=== PATIENT | female | born 1945 | race Caucasian/White ===

== ENCOUNTER 2018-02-01 05:06 | Day surgery (SDC) | payer MEDICARE ==
[~2018-02-01] VITALS: Ht 170.2 cm; Wt 101.2 kg
[~2018-02-01 05:06] MED LIST: ALB18R INH; ASCO-504 PO; CHOL100052 PO; DILT60TA33 PO; FERR-53 PO; FLUT1DIS28 IH; METF-420 PO; NIAC250C17 PO; NIAC500T85 PO; OMEP-125 PO; POTA-35 PO; SULF500T48 PO
[2018-02-01] MEDS ORDERED: NEOMYCIN/POLYMYX/BACITR 30 GM TP ONE (06:42)
[2018-02-01] MEDS ORDERED: ROPIVACAINE 0.2% 20 ML VIAL ONE (06:42)
[2018-02-01] MEDS ORDERED: FAMOTIDINE 20 MG TAB PO ONE (11:00)
[2018-02-01] MEDS ORDERED: ONDANSETRON 4 MG/2 ML VIAL ONE (11:02)
[2018-02-01] MEDS ORDERED: fentaNYL CITR 100 MCG/2 ML AMP ONE (11:02)
[2018-02-01] MEDS ORDERED: PROPOFOL EMUL(*) 10MG/ML 20 ML 20 ML ONE (11:02)
[2018-02-01] MEDS ORDERED: LIDOCAINE MPF 1% 5 ML VIAL ONE (11:02)
[2018-02-01] MEDS ORDERED: DEXAMETHASONE SOD PHOS 10MG/ML ONE (11:02)
[2018-02-01] MEDS ORDERED: EPINEPHrine HCL 1 MG/ML AMP ONE (11:06)
[2018-02-01] MEDS ORDERED: ROPIVACAINE 0.5% 20 ML VIAL ONE ×2 (11:06→11:17)
[2018-02-01] MEDS ORDERED: NS 0.9% 20 ML SDV 20 ML ONE (11:06)
[2018-02-01 11:19] VITALS: BP 179/82
[2018-02-01 11:27] LABS: PLATELET COUNT, AUTOMATED 270 K/uL (150-450)
[2018-02-01] MEDS ORDERED: MIDAZOLAM 2 MG/2 ML VIAL IVP PRN (12:00)
[2018-02-01] MEDS ORDERED: NORMOSOL R SOLN(*) 1000 ML BAG 1,000 ML IV PRN (12:00)
[2018-02-01] MEDS ORDERED: LIDOCAINE/SOD BICARB 8.4% SYR ID ONE (12:00)
[2018-02-01] MEDS ORDERED: CELECOXIB 200 MG CAP PO ONE (12:00)
[2018-02-01] MEDS ORDERED: ceFAZolin(*) 2GM/D5W 50ML 50 ML IVPB ONE (12:00)
[2018-02-01] MEDS ORDERED: CEPH500T7 PO (16:15)
[2018-02-01] MEDS ORDERED: HYDR-385 PO (16:16)
[2018-02-01 16:45] VITALS: BP 137/76
[2018-02-01 17:01] VITALS: BP 141/66
[2018-02-01 17:03] VITALS: BP 135/75
--- NOTE | 2018-02-02 15:57 | OPERATIVE REPORT 1 ---
EVENT DATE: February 01, 2018 SURGEON: Edgardo Scott MD ANESTHESIOLOGIST: Ishan Faust MD ANESTHESIA: General. 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 PROCEDURE PERFORMED Takedown six-month nonunion right distal radius with advancement of articular surface, synthetic bone grafting, open reduction and internal fixation, and reconstruction of extensor retinaculum. ESTIMATED BLOOD LOSS Minimal. INTRAVENOUS FLUIDS 1100 TOURNIQUET TIME 98 minutes No specimens. No complications. IMPLANTS USED InterGro and Rhea bone graft with TriMed seven-hole peg plate on the radial column and a dorsal buttress clip with a three-hole washer, all TriMed. There was also an interfragmentary screw. SUMMARY OF PROCEDURE The patient was brought into the operating room and placed on the OR table in the supine position with the hand table at her right side. After obtaining adequate general anesthesia and having given an axillary block, her right upper extremity was prepped and draped in the usual sterile fashion. An axillary block was selected because she had a history of potential reflex sympathetic dystrophy previously when this injury first happened, and she was casted. My feeling was that use of a block would make it a little less likely that she would have a recurrence. After exsanguination, the tourniquet was inflated, and we started a dorsal utilitarian incision, deepened through skin and subcutaneous tissue. It appeared that her radius was significantly shortened, so I planned my initial incision to allow for reconstruction of the extensor retinaculum, using 50% of it to cover the hardware and the other 50% to reconstruct the retinaculum over the fourth dorsal compartment with the intent to leave the third dorsal compartment radialized. The step incision was made in the retinaculum, and it was reflected to expose the second, third, fourth, and fifth compartments. This allowed us to expose the distal radius. There was a significant deformity with dorsal projection of the fragments. I used cautery and a blade to expose this area. I fully released the first dorsal compartment to allow for mobilization of the contracted fragments and tissue. One could see that it was moving, but it was held with dense fibrous tissue. The tissue was cut, and then using traction and a bone clamp on the radius, we progressively worked this until it cracked open and allowed me to translate the bone distally and recreate the volar tilt. Unfortunately, the bone was very soft. I did open the joint so I could view the articular surface during the entire time I was placing screws and clips as we needed to get the hardware extremely close to the articular surface since there was such a thin fragment of bone. I temporarily held it with three K-wires and then first placed the radial column plate using locking screws and nonlocking screws as necessary. I then brought the volar fragment up against the dorsal fragment to give some bone stock back, held it with a fibular clamp, and then placed an interfragmentary screw. Before placing the dorsal clip, we then mixed a combination of 1 mL of Rhea with 2 mL of InterGro and calcium granules impacted into the graft to bring both osteoconductive and osteoinductive characteristics. After densely packing this and filling all the voids, having previously curettaged the fibrous tissue, we then went ahead with the final fixation which was the dorsal clip again immediately subchondral and then supported with a three-hole washer using locking and nonlocking screws. The middle hole of the washer could not be filled because it would conflict with the screw from the column plate on the radial side. K-wires that had been temporarily placed were selectively removed as I went to maintain stability while placing the hardware. The wound was irrigated. We repaired the deep capsular tissue on the carpus with 4-0 FiberWire, 2-0 Vicryl was used to close the capsule over the wrist itself at the radiocarpal joint, and then I began to do the reconstruction of the extensor mechanism. The slip off the radial side was used to broadly fan out over the hardware to minimize risk of tendon damage. This was secured to the soft tissues on the ulnar side of the wrist. We then brought the other 50% of the retinaculum over the top of the fourth dorsal compartment, having secured the second dorsal compartment with the first slip that was protecting the hardware, and then used the ulnar slip to stabilize the fourth dorsal compartment, leaving the EPL radialized. Interestingly, this patient had a second EPL which is not a finding I see very often at all. It was only about one-fifth the size of the EPL, but it clearly was not an extensor pollicis brevis or abductor pollicis longus. It followed the EPL exactly, so we just left that with the EPL while working. The wound was irrigated one more time. The tourniquet was deflated. Bipolar and unipolar cautery were used for hemostasis where necessary, followed by closure of the skin with nylon, injection of ropivacaine, and then placement of a thumb spica splint. The plan was made to have her follow up in the office where we would place an electromagnetic bone stimulator in hopes of getting a union. If no union is obtained, I already have told her that the next step would be a fusion of the wrist. MICHAEL
== END 2018-02-01 16:40 | disposition home or self-care (01) ==
LOC: OR 05:06
PROVIDERS: ATTEND Orthopaedic Surgery Hand Surgery
DX: S52.501A Unspecified fracture of the lower end of right radius, initial encounter for closed fracture (principal); E11.9 Type 2 diabetes mellitus without complications
CPT/HCPCS: 25609; 36415; 36416; 76000; 76942; 82948; 85025; A4565; A9270; C1713; J0171; J1100; J2001; J2250; J2405; J2704; J2795; J3010; J7050; J0690